=== PATIENT | female | born 1960 | race Caucasian/White ===

== ENCOUNTER 2016-05-29 22:00 | Emergency (ER) | payer OTHER ==
[2016-05-29 22:17] VITALS: BP 155/77; PULSE 80; TEMP 97.8; BMI 37.1
== END 2016-05-30 00:24 | disposition left against medical advice (07) ==
LOC: JER 22:00
DX: Z53.21 Procedure and treatment not carried out due to patient leaving prior to being seen by health care provider (principal)
CPT/HCPCS: 99281-25

== ENCOUNTER 2017-10-09 15:15 | Emergency (ER) | payer OTHER ==
[2017-10-09 15:23] VITALS: BP 133/76; PULSE 75; TEMP 98.6; BMI 33.9
--- NOTE | 2017-10-09 15:36 | PDOC ---
History of Present Illness - General Chief Complaint: Headache Stated Complaint: HEADACHES (PCP SENT) Time Seen by Provider: 10/09/17 15:24 History Source: Patient - History of Present Illness Timing/Duration: reports: 4-6 hours Associated Symptoms: denies: loss of consciousness, nausea/vomiting, vision changes Past History - Past Medical History Allergies/Adverse Reactions: Allergies Allergy/AdvReac Type Severity Reaction Status Date / Time levofloxacin [From Levaquin] Allergy Intermediate Verified 10/09/17 15:20 Home Medications: Ambulatory Orders NK [No Known Home Medication] 10/09/17 Anemia: No Asthma: No Cancer: No Cardiac Disorders: No CVA: No COPD: No CHF: No Dementia: No Diabetes: No GI Disorders: Yes (ACID REFLUX) Disorders: No HTN: No Hypercholesterolemia: No Liver Disease: No Seizures: No Thyroid Disease: No Other medical history: migraine headache - Surgical History Abdominal Surgery: No Appendectomy: No Cardiac Surgery: No Cholecystectomy: No Lung Surgery: No Neurologic Surgery: No Orthopedic Surgery: No - Immunization History Immunization Up to Date: Yes - Suicide/Smoking/Psychosocial Hx Smoking History: Never smoked Have you smoked in the past 12 months: No Number of Cigarettes Smoked Daily: 0 Hx Alcohol Use: No Drug/Substance Use Hx: No Substance Use Type: None Review of Systems - Review of Systems HEENTM: No: Blurred Vision ABD/GI: No: Nausea, Vomiting Neurological: Yes: Headache. No: Dizziness *Physical Exam - Vital Signs Last Vital Signs Temp Pulse Resp BP Pulse Ox 98.6 F 75 18 133/76 100 10/09/17 15:20 10/09/17 15:20 10/09/17 15:20 10/09/17 15:20 10/09/17 15:20 - Physical Exam General Appearance: Yes: Appropriately Dressed. No: Apparent Distress HEENT: positive: Normal Voice Neck: positive: Supple Respiratory/Chest: negative: Respiratory Distress Integumentary: positive: Dry, Warm Neurologic: positive: dial painter II-XII NML intact, Fully Oriented, Alert, Normal Mood/ Affect, Motor Strength 5/5, Finger to Nose (no nystagmus, Sj intact, no drift , no ataxia). negative: Facial Droop Medical Decision Making - Medical Decision Making 10/09/17 15:47 56-year-old female, endorses history of migraines, here with headache and photophobia, similar to her migraine headaches that started after a box of plates fell on head proximally 6 hours ago while at work. No LOC, nausea, vomiting, visual changes or dizziness. Not on any blood thinners. Seen by her primary doctor and sent to ED for possible CAT scan. See exam RODRIGUEZ s/p minor head injury ~6 hrs ago Similar to her migraines per pt No LOC, dizziness, n/v Not on blood thinners Well vishal and stable w/ intact neuro exam No indication for neuroimaging at this time -pain control>reassess 10/09/17 16:59 Pt reports sig improvement w/ meds. Continues to be neurologically intact and well appearing. Dc w/ pmd f/u as needed *DC/Admit/Observation/Transfer Diagnosis at time of Disposition: Headache Qualifiers: Headache type: unspecified Headache chronicity pattern: unspecified pattern Intractability: not intractable Qualified Code(s): R51 - Headache - Discharge Dispostion Disposition: HOME Condition at time of disposition: Improved - Referrals Referrals: Emmanuel Bowser MD [Primary Care Provider] - - Patient Instructions Printed Discharge Instructions: DI for Headache, Closed Head Injury Additional Instructions: You were seen for a minor head injury. There was no indication for head CT given mechanism and absence of concerning symptoms such as loss of consciousness , vomiting, changes in vision, etc. Continue to take your pain medication at home for your migraines as needed. Reasons to return to ED was discussed in ER. Follow-up with your PMD - Post Discharge Activity Forms/Work/School Notes: Back to Work
[2017-10-09] MEDS ORDERED: METOCLOPRAMIDE HCL INJECTION 10 MG/2 ML VIAL IVPB ONE (15:47)
[2017-10-09] MEDS ORDERED: KETOROLAC TROMETHAMINE 30 MG/1 ML VIAL IVPUSH ONE (15:47)
[2017-10-09] MEDS ORDERED: METOCLOPRAMIDE HCL INJECTION 10 MG/2 ML VIAL ONE (15:54)
[2017-10-09] MEDS ORDERED: KETOROLAC TROMETHAMINE 30 MG/1 ML VIAL ONE (15:55)
== END 2017-10-09 17:04 | disposition home or self-care (01) ==
LOC: JERFT 15:15
DX: R51 Headache (principal); W22.8XXA Striking against or struck by other objects, initial encounter; Y93.89 Activity, other specified; Y92.218 Other school as the place of occurrence of the external cause; Y99.0 Civilian activity done for income or pay
CPT/HCPCS: 99281-25

== ENCOUNTER 2020-01-11 09:50 | Observation (INO) | payer OTHER ==
[2020-01-11] MEDS ORDERED: SODIUM CHLORIDE 0.9% 1000 ML INFUS.BAG IV ONE (10:21)
[2020-01-11 11:07] LABS: BASO % 1.2 % (0-2.0); EOS % 1.7 % (0-4.5); HEMATOCRIT 40.2 % (32.4-45.2); HEMOGLOBIN 12.9 GM/dL (10.7-15.3); LYMPH % 23.8 % (8-40); MCH 27.5 pg (25.7-33.7); MCHC 32.1 g/dl (32.0-36.0); MEAN CELL VOLUME 85.6 fl (80-96); MONO % 6.6 % (3.8-10.2); NEUT % 66.7 % (42.8-82.8); PLATELET COUNT 209 K/MM3 (134-434); RDW 14.2 % (11.6-15.6); WHITE BLOOD COUNT 5.8 K/mm3 (4.0-10.0)
--- NOTE | 2020-01-11 11:07 | PDOC ---
Documentation entered by Adela Morse SCRIBE, acting as scribe for Krystle Arreola MD. Krystle Arreola MD: This documentation has been prepared by the shawneeibeLito Ana, SCRIBE, under my direction and personally reviewed by me in its entirety. I confirm that the documentation accurately reflects all work, treatment, procedures, and medical decision making performed by me. History of Present Illness - General Chief Complaint: Syncope/Near Syncope Stated Complaint: SYNCOPE Time Seen by Provider: 01/11/20 10:09 History Source: Patient Exam Limitations: No Limitations - History of Present Illness Initial Comments: 01/11/20 10:10 Patient is a 59 year old female with a significant past medical history of syncope, migraines, asthma, and arthritis, who presents to the ED with a fall from earlier today. Patient stated she was in the middle of taking a shower this morning when she began to feel dizzy, lightheaded, SOB, and "blacked out". Patient said she lost consciousness and only remembers waking up on the floor. Patient also reports a burning sensation when she urinates x6 days. Patient recently came back from the [place] on January 01. Patient also disclosed that [place], she fainted, had a fever for 2 days, and had diarrhea. Patient endorses current: chills, headache, neck pain, abdominal pain, tingling feeling in fingers x a few days. Patient denies: fever, nausea, vomiting, palpitations, chest pain, constipation, diarrhea, or any other related symptoms. Allergies: levofloxacin. Past History - Medical History Allergies/Adverse Reactions: Allergies Allergy/AdvReac Type Severity Reaction Status Date / Time levofloxacin [From Levaquin] Allergy Intermediate Verified 01/11/20 09:56 Home Medications: Ambulatory Orders NK [No Known Home Medication] 10/09/17 Anemia: No Asthma: No Cancer: No Cardiac Disorders: No CVA: No COPD: No CHF: No Dementia: No Diabetes: No GI Disorders: Yes (ACID REFLUX) Disorders: No HTN: No Hypercholesterolemia: No Liver Disease: No Seizures: No Thyroid Disease: No Other medical history: MIRGRAINE HEADACHES - Surgical History Abdominal Surgery: No Appendectomy: No Cardiac Surgery: No Cholecystectomy: No Lung Surgery: No Neurologic Surgery: No Orthopedic Surgery: No - Immunization History Immunization Up to Date: No - Psycho-Social/Smoking History Smoking History: Never smoked Have you smoked in the past 12 months: No Number of Cigarettes Smoked Daily: 0 - Substance Abuse Hx (Audit-C & DAST Scrn) How often the patient has a drink containing alcohol: Never Score: In Men: 4 or > Positive; In Women: 3 or > Positive: 0 Screen Result (Pos requires Nsg. Audit-10AR): Negative In the last yr the pt used illegal drug/Rx for NonMed reason: No Score: Yes response is considered Positive: 0 Screen Result (Positive result requires Nsg. DAST-10): Negative Review of Systems - Review of Systems Able to Perform ROS?: Yes Constitutional: Yes: Chills, Fever, Other (2 weeks ago). No: Diaphoresis HEENTM: No: Nose Congestion, Tinnitus Respiratory: Yes: Cough ABD/GI: No: Nausea, Vomiting : Yes: Burning, Dysuria Musculoskeletal: Yes: Back Pain Neurological: Yes: Headache, Tingling (has had for days). No: Tremors All Other Systems: Reviewed and Negative *Physical Exam - Vital Signs Last Vital Signs Temp Pulse Resp BP Pulse Ox 98.6 F 68 20 116/67 100 01/11/20 09:56 01/11/20 09:56 01/11/20 09:56 01/11/20 09:56 01/11/20 09:56 ED Treatment Course - LABORATORY CBC & Chemistry Diagram: 01/11/20 10:10 01/11/20 10:10 Medical Decision Making - Medical Decision Making 01/11/20 12:38 59-year-old female with a history of syncope asthma recently traveled to the where she stayed for 30 days at that time had a febrile illness with low blood pressure which she had for 2 days and diarrhea now here today with a syncopal episode while in the shower patient found herself laying in the bathtub did hit her head is complaining of a headache nausea no vomiting does also complain of dysuria for 3 days. On my exam the patient is neurologically intact cardiac lung exam is unremarkable her abdomen is nontender she has good strength throughout. Differential diagnosis includes dehydration secondary to UTI and subsequent syncope, dysrhythmia, ACS, pyelonephritis, plan CBC CMP troponin EKG chest x-ray basic labs UA urine culture will also add a COVID-19 swab as the patient was febrile in the ER recently Patient's labs are unremarkable with a normal white count no anemia troponin is negative she does have a UTI with over 150 white cells in her urine will treat with ceftriaxone she be given a liter normal saline fluids EKG shows a normal sinus rhythm no ST elevations or depressions will admit to telemetry for UTI with syncope and further cardiac work-up IV antibiotics Discharge - Discharge Information Problems reviewed: Yes Clinical Impression/Diagnosis: Syncope, UTI (urinary tract infection) Condition: Improved - Admission Yes - Follow up/Referral - Patient Discharge Instructions - Post Discharge Activity
[2020-01-11 11:45] LABS: ALBUMIN 3.2 g/dl (3.4-5.0); ALK PHOS 93 U/L (45-117); ANION GAP 6 MMOL/L (8-16); BILIRUBIN,TOTAL 0.4 mg/dL (0.2-1); BLOOD UREA NITROGEN 16.4 mg/dL (7-18); CALCIUM 8.9 mg/dL (8.5-10.1); CHLORIDE 108 mmol/L (98-107); CO2 28 mmol/L (21-32); CREATININE 0.8 mg/dL (0.55-1.3); GLUCOSE,RANDOM 96 mg/dL (74-106); POTASSIUM 4.4 mmol/L (3.5-5.1); SGOT/AST 21 U/L (15-37); SGPT/ALT 19 U/L (13-61); SODIUM 142 mmol/L (136-145); TOT PROT 7.5 g/dl (6.4-8.2)
[2020-01-11 12:07] LABS: EPI CELLS 16 /uL (0-25.1); HYALINE CASTS 7 /uL (0-3.1); URINE APPEARANCE CLOUDY; URINE BILIRUBIN NEGATIVE (NEGATIVE); URINE COLOR YELLOW; URINE GLUCOSE (UA) NEGATIVE (NEGATIVE); URINE KETONE NEGATIVE (NEGATIVE); URINE LEUK ESTERASE 1+ (NEGATIVE); URINE NITRITE POSITIVE (NEGATIVE); URINE PROTEIN NEGATIVE (NEGATIVE); URINE RBC 22 /uL (0-23.9); URINE UROBILINOGEN 0.2 mg/dL (0.2-1.0); URINE WBC 142 /uL (0-25.8)
[2020-01-11] MEDS ORDERED: CEFTRIAXONE 1,000 MG in DEXTROSE 5%-WATER - 50 ML IVPB ONE (12:37)
[2020-01-11] MEDS ORDERED: CEFTRIAXONE 1 GM/50 ML BAG ONE (12:44)
--- NOTE | 2020-01-11 12:49 | EKG ---
Test Reason : Blood Pressure : / mmHG Vent. Rate : 067 BPM Atrial Rate : 067 BPM P-R Int : 182 ms QRS Dur : 086 ms QT Int : 438 ms P-R-T Axes : 066 066 035 degrees QTc Int : 462 ms NORMAL SINUS RHYTHM NORMAL ECG WHEN COMPARED WITH ECG OF 14-SEP-2014 07:42, NO SIGNIFICANT CHANGE WAS FOUND Confirmed by Josh Fitzgerald MD ([id number]) on 01/11/2020 12:49:43 PM Referred By: Confirmed By:Josh Fitzgerald MD
[2020-01-11] MEDS ORDERED: ACETAMINOPHEN 325 MG TABLET (FP) PO ONE (14:34)
[2020-01-11] MEDS ORDERED: ACETAMINOPHEN 325 MG TABLET (FP) ONE (14:53)
[2020-01-11 17:11] VITALS: BMI 34.3
[2020-01-11] MEDS ORDERED: ACETAMINOPHEN 1000 MG/100 ML VIAL (NON FORMULARY) IVPB ONE (17:40)
[2020-01-11] MEDS: D5-1/2NS+20 MEQ KCL - 20 MEQ/1,000 ML INFUS.BAG IV SCH (18:26)
[2020-01-11] MEDS: HEPARIN NA (PORCINE) 5,000 UNITS/ML 1ML VIAL SQ SCH (21:30)
[2020-01-12] MEDS: D5-1/2NS+20 MEQ KCL - 20 MEQ/1,000 ML INFUS.BAG IV SCH (05:43)
[2020-01-12 07:21] LABS: BASO % 1.2 % (0-2.0); EOS % 2.6 % (0-4.5); HEMATOCRIT 36.4 % (32.4-45.2); HEMOGLOBIN 11.8 GM/dL (10.7-15.3); LYMPH % 46.4 % (8-40); MCH 27.1 pg (25.7-33.7); MCHC 32.4 g/dl (32.0-36.0); MEAN CELL VOLUME 83.9 fl (80-96); MEAN PLT VOLUME 9.8 fl (7.5-11.1); MONO % 7.5 % (3.8-10.2); NEUT % 42.3 % (42.8-82.8); PLATELET COUNT 195 K/MM3 (134-434); RBC 4.34 M/mm3 (3.60-5.2); WHITE BLOOD COUNT 4.2 K/mm3 (4.0-10.0)
[2020-01-12 07:52] LABS: ALBUMIN 2.9 g/dl (3.4-5.0); ALK PHOS 87 U/L (45-117); ANION GAP 7 MMOL/L (8-16); BLOOD UREA NITROGEN 9.2 mg/dL (7-18); CALCIUM 8.8 mg/dL (8.5-10.1); CHLORIDE 109 mmol/L (98-107); CO2 25 mmol/L (21-32); CREATININE 0.7 mg/dL (0.55-1.3); GLUCOSE,RANDOM 96 mg/dL (74-106); HDL CHOLESTEROL 69 mg/dL (40-60); SODIUM 142 mmol/L (136-145); TRIGLYCERIDES 116 mg/dL (0-150)
[2020-01-12 07:56] LABS: BILIRUBIN,TOTAL 1.1 mg/dL (0.2-1); CHOLESTEROL 205 mg/dL (50-200); LDL CHOLESTEROL (ONLY SJRH) 115 mg/dL (5-100); MAGNESIUM 2.1 mg/dL (1.8-2.4); SGOT/AST 15 U/L (15-37); SGPT/ALT 14 U/L (13-61); TOT PROT 6.8 g/dl (6.4-8.2)
--- NOTE | 2020-01-12 09:00 | CON.NEURO ---
Consult Consult Specialty:: [facility] - History of Present Illness History of Present Illness: 59-year-old right-handed female patient with history of chronic headaches/migraine/and anxietysyncope in the past came in to the hospital after lightheadedness and questionable syncope source patient was in the shower no report of any chest pain palpitations no report of any recent travel no head trauma no exposure to Covid 19. Patient fell with mild head trauma I reviewed the images of the CAT scan of the cervical spine and the brain. - Past Medical History Gastrointestinal: Yes: GERD ...: No - Past Surgical History Past Surgical History: Yes: Hysterectomy - Alcohol/Substance Use Hx Alcohol Use: No - Smoking History Smoking history: Never smoked Have you smoked in the past 12 months: No Aproximately how many cigarettes per day: 0 - Social History ADL: Independent History of Recent Travel: No Home Medications - Allergies Allergies/Adverse Reactions: Allergies Allergy/AdvReac Type Severity Reaction Status Date / Time levofloxacin [From Levaquin] Allergy Intermediate Verified 01/11/20 09:56 - Home Medications Home Medications: Ambulatory Orders NK [No Known Home Medication] 10/09/17 Family Medical History Family History: Unremarkable Review of Systems - Review of Systems Neurological: reports: Dizziness, Headache, Incoordination, Numbness Physical Exam-Neuro Vital Signs: Vital Signs Temperature 97.8 F 01/12/20 05:00 Pulse Rate 58 L 01/12/20 05:00 Respiratory Rate 20 01/12/20 05:00 Blood Pressure 123/62 01/12/20 05:00 O2 Sat by Pulse Oximetry (%) 90 L 01/12/20 05:00 Labs: CBC, BMP 01/12/20 06:14 01/12/20 06:14 - Neuro Exam Level Of Consciousness: Yes: Oriented to Person, Oriented to Place, Oriented to Time Eyes: Yes: PERRLA Speech: WNL Dominant Hand: Right Cranial Nerves II-XII Intact: Yes Gag: Present DTR's: 1+ Left Bicep, 1+ Right Bicep, 1+ Left Tricep, 1+ Right Tricep Response to light touch: Normal Response to pain prick: Normal Response to temperature: Normal Motor Strength: 3/5: Left Arm, Right Arm, Left Leg, Right Leg Gait: Deferred Imaging - Results Cat Scan: Image Reviewed Problem List - Problems (1) Syncope Code(s): R55 - SYNCOPE AND COLLAPSE (2) Headache Code(s): R51 - HEADACHE (3) Vertigo Code(s): R42 - DIZZINESS AND GIDDINESS Assessment/Plan . Fall precautions. 2. Holter monitor. 3. MRI of the brain with no contrast. 4. No need for aspirin. 5. Tight blood pressure control
--- NOTE | 2020-01-12 10:31 | CON.CARD ---
Consult Consult Specialty:: Cardiology Referred by:: Jd Reason for Consultation:: syncope - History of Present Illness Chief Complaint: syncope History of Present Illness: 59 year old female with a history of migraines, asthma, and arthritis, who was admitted with a fall in the shower, prodrome of lightheadedness and flushing. Denies chest pain or sob. Recent illness in [place], and noted with UTI as well. No cardiac history. - History Source History Provided By: Patient, Medical Record - Past Medical History Gastrointestinal: Yes: GERD ...: No - Past Surgical History Past Surgical History: Yes: Hysterectomy - Alcohol/Substance Use Hx Alcohol Use: No - Smoking History Smoking history: Never smoked Have you smoked in the past 12 months: No Aproximately how many cigarettes per day: 0 - Social History ADL: Independent History of Recent Travel: No Home Medications - Allergies Allergies/Adverse Reactions: Allergies Allergy/AdvReac Type Severity Reaction Status Date / Time levofloxacin [From Levaquin] Allergy Intermediate Verified 01/11/20 09:56 - Home Medications Home Medications: Ambulatory Orders NK [No Known Home Medication] 10/09/17 Family Medical History Family History: Unremarkable Vital Signs: Vital Signs Temperature 97.8 F 01/12/20 05:00 Pulse Rate 58 L 01/12/20 05:00 Respiratory Rate 20 01/12/20 05:00 Blood Pressure 123/62 01/12/20 05:00 O2 Sat by Pulse Oximetry (%) 90 L 01/12/20 05:00 Constitutional: Yes: No Distress, Calm Eyes: Yes: Conjunctiva Clear, EOM Intact HENT: Yes: Normocephalic Neck: Yes: Trachea Midline Respiratory: Yes: CTA Bilaterally Gastrointestinal: Yes: Normal Bowel Sounds, Soft Cardiovascular: Yes: Regular Rate and Rhythm JVD: No Carotid Bruit: No PMI: Non-Displaced Heart Sounds: Yes: S1, S2 Extremities: Yes: WNL Edema: No Peripheral Pulses WNL: Yes - Other Data Labs, Other Data: CBC, BMP 01/12/20 06:14 01/12/20 06:14 Troponin, BNP 01/11/20 01/11/20 01/12/20 10:10 20:45 06:14 Troponin I < 0.02 < 0.02 < 0.02 Troponin, BNP 01/11/20 01/11/20 01/12/20 10:10 20:45 06:14 Troponin I < 0.02 < 0.02 < 0.02 Imaging - Results Chest X-ray: Report Reviewed (alexandro) Cat Scan: Report Reviewed (neg) EKG: Report Reviewed (normal ECG) Assessment/Plan 59 year old female with a history of migraines, asthma, and arthritis, who was admitted with a fall in the shower, prodrome of lightheadedness and flushing. Denies chest pain or sob. Recent illness in [place], and noted with UTI as well. No cardiac history. IMP -likely orthostatic syncope. -tele x 24 hours only needed. -no need for inpatient echo. -check orthostatic VS -continue IVF and ABX. -will follow with you.
[2020-01-12] MEDS ORDERED: cefTRIAXone SODIUM 1 GM VIAL ONE (10:58)
[2020-01-12] MEDS ORDERED: DEXTROSE 5%-WATER - 50 ML IVPB ONE (10:59)
[2020-01-12] MEDS: CEFTRIAXONE 1 GM in DEXTROSE 5%-WATER - 50 ML IVPB SCH (11:01)
[2020-01-12] MEDS: HEPARIN NA (PORCINE) 5,000 UNITS/ML 1ML VIAL SQ SCH ×2 (11:01→21:18)
--- NOTE | 2020-01-12 12:27 | HP ---
Admitting History and Physical - Primary Care Physician PCP: Laura Miles - Admission Chief Complaint: Syncope. UTI History of Present Illness: Patient is a 59 year old female with a significant past medical history of syncope, migraines, asthma, and arthritis, who presents to the ED with a fall from earlier today. Patient stated she was in the middle of taking a shower this morning when she began to feel dizzy, lightheaded, SOB, and "blacked out". P lilian said she lost consciousness and only remembers waking up on the floor. Patient also reports a burning sensation when she urinates x6 days. Patient recently came back from the [facility] on January 01. Patient also disclosed that while she in [place] a few weeks ago, she fainted, had a fever for 2 days, and had diarrhea. History Source: Patient Limitations to Obtaining History: No Limitations - Past Medical History Gastrointestinal: Yes: GERD ...: No - Past Surgical History Past Surgical History: Yes: Hysterectomy - Smoking History Smoking history: Never smoked Have you smoked in the past 12 months: No Aproximately how many cigarettes per day: 0 - Alcohol/Substance Use Hx Alcohol Use: No - Social History ADL: Independent History of Recent Travel: No Home Medications - Allergies Allergies/Adverse Reactions: Allergies Allergy/AdvReac Type Severity Reaction Status Date / Time levofloxacin [From Levaquin] Allergy Intermediate Verified 01/11/20 09:56 - Home Medications Home Medications: Ambulatory Orders NK [No Known Home Medication] 10/09/17 Family Medical History Family History: Unremarkable Review of Systems - Review of Systems Constitutional: reports: No Symptoms Eyes: reports: No Symptoms HENT: reports: No Symptoms Neck: reports: No Symptoms Cardiovascular: reports: No Symptoms Respiratory: reports: No Symptoms Gastrointestinal: reports: No Symptoms Genitourinary: reports: No Symptoms Breasts: reports: No Symptoms Reported Musculoskeletal: reports: No Symptoms Integumentary: reports: No Symptoms Neurological: reports: Syncope Endocrine: reports: No Symptoms Hematology/Lymphatic: reports: No Symptoms Psychiatric: reports: No Symptoms Physical Examination Vital Signs: Vital Signs Temperature 98.4 F 01/12/20 09:30 Pulse Rate 72 01/12/20 09:30 Respiratory Rate 20 01/12/20 09:30 Blood Pressure 123/81 01/12/20 09:30 O2 Sat by Pulse Oximetry (%) 98 01/12/20 09:30 Constitutional: Yes: Well Nourished, No Distress, Calm Cardiovascular: Yes: Regular Rate and Rhythm Respiratory: Yes: Regular, CTA Bilaterally Gastrointestinal: Yes: Normal Bowel Sounds, Soft Renal/: Yes: WNL Musculoskeletal: Yes: WNL Extremities: Yes: WNL Edema: No Peripheral Pulses WNL: Yes Neurological: Yes: Alert, Oriented Psychiatric: Yes: Alert, Oriented Labs: CBC, BMP 01/12/20 06:14 01/12/20 06:14 Problem List - Problems (1) Syncope Assessment/Plan: -Cardiology consult -neurology consult -CT head negative -MRI brain without contrast ordered -2/2 to UTI? -No further cardiac testing recommended -Tele monitor Problems reviewed: Yes Code(s): R55 - SYNCOPE AND COLLAPSE (2) UTI (urinary tract infection) Assessment/Plan: -IV abx -ID consult -UC + lactose fermenting GNB -D/C IVF -encourage PO fluids Problems reviewed: Yes Code(s): N39.0 - URINARY TRACT INFECTION, SITE NOT SPECIFIED Assessment/Plan See problem list
--- NOTE | 2020-01-12 15:22 | PN ---
Progress Note (short form) - Note Progress Note: ID CONSULT DICTATED UTI R/O SEPSIS SECONDARY TO UTI S/P SYNCOPE PENDING C/S CONTINUE EMPIRIC CEFTRIAXONE
--- NOTE | 2020-01-12 16:11 | CONS ---
INFECTIOUS DISEASE CONSULTATION DATE OF CONSULTATION: DATE OF DICTATION: 01/12/2020 The patient is a 59-year-old female evaluated for possible sepsis. She was admitted to the hospital on January 11, 2020, after a syncopal episode. Patient states that she was in the shower when she developed a syncopal episode. She apparently had head trauma. She was brought to the emergency room where a CAT scan of the head was negative for acute infarct or bleed. She had been complaining of dysuria for 6 days prior to admission. A urinalysis showed pyuria. Urine culture is growing a lactose learning strategist. She is presently being evaluated by Cardiology and Neurology. At the present time, she denies any dysuria. No reports of suprapubic or flank pain. She denies any hematuria. No recent febrile illness. Of note, the patient recently returned from the [facility] on January 02, 2020, after spending several weeks there. PAST MEDICAL HISTORY: Positive for migraine headaches, asthma. PAST SURGICAL HISTORY: Status post hysterectomy. ALLERGIES: QUINOLONES. MEDICATIONS: Include ceftriaxone, Tylenol. SOCIAL HISTORY: She resides in the community. She is a nonsmoker, nondrinker. SYSTEMS REVIEW: Neurologic: As per HPI. Cardiac: Negative chest pain or palpitations. Respiratory: Negative cough or sputum production. Gastrointestinal: Negative vomiting or diarrhea. Genitourinary: As per HPI. LABORATORY DATA: White count 4.2; neutrophils 42, lymphocytes 46; hematocrit 36.4; platelets 145. Creatinine 0.7. Urinalysis: White cells 142. Urine culture growing a lactose learning strategist. PHYSICAL EXAMINATION: General: She is awake and alert. She is not acutely toxic appearing. Vital Signs: Temperature 97.9; blood pressure 126/55; pulse 68, regular; respirations 20 per minute. HEENT: Sclerae are anicteric. Heart: Sounds S1, S2. Lungs: Clear. Abdomen: Soft. No suprapubic or flank tenderness. Extremities: Negative for edema. IMPRESSION: 1. Status post syncopal episode. 2. Urinary tract infection, rule out sepsis secondary to urinary tract infection. Obtain blood cultures, await urine culture results, continue empiric ceftriaxone. Will follow. Thank you for the kind referral. MICHAELA CH M.D. [id number]
[2020-01-12] MEDS ORDERED: ACETAMINOPHEN 325 MG TABLET (FP) PO PRN (16:41)
--- NOTE | 2020-01-12 16:55 | EKG ---
Test Reason : Blood Pressure : / mmHG Vent. Rate : 067 BPM Atrial Rate : 067 BPM P-R Int : 170 ms QRS Dur : 080 ms QT Int : 426 ms P-R-T Axes : 068 070 037 degrees QTc Int : 450 ms NORMAL SINUS RHYTHM NORMAL ECG WHEN COMPARED WITH ECG OF 11-JAN-2020 10:09, NO SIGNIFICANT CHANGE WAS FOUND Confirmed by NAV QUINTERO MD ([id number]) on 01/12/2020 4:55:16 PM Referred By: Confirmed By:NAV QUINTERO MD
--- NOTE | 2020-01-13 08:34 | PN ---
Progress Note, Physician Chief Complaint: UTI Syncope History of Present Illness: NAD was unable to do MRI brain due to claustrophobia- refuses to do it again w/ antianxiolytic Denies any urinary symptoms - Current Medication List Current Medications: Active Medications Acetaminophen (Tylenol -) 650 mg PO Q4H PRN PRN Reason: PAIN LEVEL 1-5 OR FEVER > 100 Heparin Sodium (Porcine) (Heparin -) 5,000 unit SQ BID LAURI Last Admin: 01/12/20 21:18 Dose: 5,000 unit Documented by: Ceftriaxone Sodium 1 gm/ (Dextrose) 50 mls @ 200 mls/hr IVPB DAILY [facility]; Protocol Last Admin: 01/12/20 11:01 Dose: 200 mls/hr Documented by: - Objective Vital Signs: Vital Signs Temperature 97.7 F 01/13/20 06:00 Pulse Rate 56 L 01/13/20 06:00 Respiratory Rate 18 01/13/20 06:00 Blood Pressure 119/67 01/13/20 06:00 O2 Sat by Pulse Oximetry (%) 100 01/13/20 06:00 Constitutional: Yes: Well Nourished, No Distress, Calm Cardiovascular: Yes: Regular Rate and Rhythm Respiratory: Yes: Regular, CTA Bilaterally Gastrointestinal: Yes: Normal Bowel Sounds, Soft Genitourinary: Yes: WNL Musculoskeletal: Yes: WNL Extremities: Yes: WNL Edema: No Peripheral Pulses WNL: Yes Neurological: Yes: Alert, Oriented Psychiatric: Yes: Alert, Oriented Labs: CBC, BMP 01/12/20 06:14 01/12/20 06:14 Problem List - Problems (1) Syncope Assessment/Plan: -Cardiology consult -neurology consult -CT head negative -MRI brain without contrast unable to complete -2/2 to UTI? -No further cardiac testing recommended -d/c Tele monitor Problems reviewed: Yes Code(s): R55 - SYNCOPE AND COLLAPSE (2) UTI (urinary tract infection) Assessment/Plan: -IV abx--->transition to PO if ID agrees -ID consult -UC + lactose fermenting GNB -D/C IVF -encourage PO fluids Problems reviewed: Yes Code(s): N39.0 - URINARY TRACT INFECTION, SITE NOT SPECIFIED Assessment/Plan See problem list
[2020-01-13] MEDS ORDERED: DEXTROSE 5%-WATER - 50 ML IVPB ONE (09:53)
[2020-01-13] MEDS ORDERED: cefTRIAXone SODIUM 1 GM VIAL ONE (09:53)
--- NOTE | 2020-01-13 10:10 | PN ---
Progress Note, Physician Chief Complaint: no complaints tele neg could not tolerate MRI History of Present Illness: 59 year old female with a history of migraines, asthma, and arthritis, who was admitted with a fall in the shower, prodrome of lightheadedness and flushing. Denies chest pain or sob. Recent illness in [place], and noted with UTI as well. No cardiac history. - Current Medication List Current Medications: Active Medications Acetaminophen (Tylenol -) 650 mg PO Q4H PRN PRN Reason: PAIN LEVEL 1-5 OR FEVER > 100 Heparin Sodium (Porcine) (Heparin -) 5,000 unit SQ BID [facility] Last Admin: 01/12/20 21:18 Dose: 5,000 unit Documented by: Ceftriaxone Sodium 1 gm/ (Dextrose) 50 mls @ 200 mls/hr IVPB DAILY [facility]; Protocol Last Admin: 01/12/20 11:01 Dose: 200 mls/hr Documented by: - Objective Vital Signs: Vital Signs Temperature 97.7 F 01/13/20 06:00 Pulse Rate 56 L 01/13/20 06:00 Respiratory Rate 18 01/13/20 06:00 Blood Pressure 119/67 01/13/20 06:00 O2 Sat by Pulse Oximetry (%) 100 01/13/20 06:00 Constitutional: Yes: No Distress, Calm Eyes: Yes: EOM Intact HENT: Yes: Normocephalic Neck: Yes: Trachea Midline Cardiovascular: Yes: Regular Rate and Rhythm Respiratory: Yes: CTA Bilaterally Gastrointestinal: Yes: Normal Bowel Sounds, Soft Extremities: Yes: WNL Edema: No Peripheral Pulses WNL: Yes Labs: CBC, BMP 01/12/20 06:14 01/12/20 06:14 Assessment/Plan 59 year old female with a history of migraines, asthma, and arthritis, who was admitted with a fall in the shower, prodrome of lightheadedness and flushing. Denies chest pain or sob. Recent illness in [place], and noted with UTI as well. No cardiac history. IMP -likely orthostatic syncope. -tele x 24 hours negative. -no need for inpatient echo. Echo can be done as outpatient. -check orthostatic VS -continue IVF and ABX. -will follow as needed.
[2020-01-13] MEDS: HEPARIN NA (PORCINE) 5,000 UNITS/ML 1ML VIAL SQ SCH (10:18)
[2020-01-13] MEDS: CEFTRIAXONE 1 GM in DEXTROSE 5%-WATER - 50 ML IVPB SCH (10:18)
[2020-01-13 14:28] VITALS: BP 114/73; PULSE 70; TEMP 97.9
== END 2020-01-13 18:11 | disposition home or self-care (01) ==
LOC: JER 09:50 → INTOOBSV 13:51 → JERBED 13:51 → J4S 18:07
PROVIDERS: ADMIT Family Medicine; ATTEND Family Medicine
PROC: 3E0337Z Introduction of Electrolytic and Water Balance Substance into Peripheral Vein, Percutaneous Approach (ICD-10-PCS; principal; 2020-01-11)
PROC: 3E023GC Introduction of Other Therapeutic Substance into Muscle, Percutaneous Approach (ICD-10-PCS; 2020-01-11)
PROC: 3E03329 Introduction of Other Anti-infective into Peripheral Vein, Percutaneous Approach (ICD-10-PCS; 2020-01-11)
DX: R55 Syncope and collapse (principal); N39.0 Urinary tract infection, site not specified; E66.8 Other obesity; Z68.34 Body mass index [BMI] 34.0-34.9, adult; J45.909 Unspecified asthma, uncomplicated; K21.9 Gastro-esophageal reflux disease without esophagitis; G89.29 Other chronic pain; F41.9 Anxiety disorder, unspecified; R42 Dizziness and giddiness; R20.0 Anesthesia of skin; E66.9 Obesity, unspecified; W18.2XXA Fall in (into) shower or empty bathtub, initial encounter; Y93.E1 Activity, personal bathing and showering; Y92.89 Other specified places as the place of occurrence of the external cause; Z88.8 Allergy status to other drugs, medicaments and biological substances; Z29.9 Encounter for prophylactic measures, unspecified
CPT/HCPCS: 36415; 70450-TC; 71046-TC-FY; 72125-TC; 73030-TC-LT-FY; 80053; 80061; 81003; 82550; 83036; 83721; 83735; 84443; 84484; 85025; 87040; 87086; 87186; 93005; 93010; 99285-25; G0378; J0131; J1644; U0003

== ENCOUNTER 2022-02-27 13:08 | Emergency (ER) | payer OTHER ==
[2022-02-27 13:23] VITALS: BP 117/75; PULSE 68; RESP 18; TEMP 98.2; BMI 37.1
[2022-02-27] MEDS ORDERED: KETOROLAC TROMETHAMINE 30 MG/1 ML VIAL IM ONE (14:35)
[2022-02-27] MEDS ORDERED: DIPHTH,PERTUSS(ACELL),TET 0.5 ML DISP.SYRIN IM ONE ×2 (14:35→14:40)
[2022-02-27] MEDS ORDERED: KETOROLAC TROMETHAMINE 30 MG/1 ML VIAL ONE (14:40)
== END 2022-02-27 15:12 | disposition home or self-care (01) ==
LOC: JERFT 13:08 → JER 13:08 → JERFT 15:12
PROC: 3E0233Z Introduction of Anti-inflammatory into Muscle, Percutaneous Approach (ICD-10-PCS; principal; 2022-02-27)
PROC: 3E0234Z Introduction of Serum, Toxoid and Vaccine into Muscle, Percutaneous Approach (ICD-10-PCS; 2022-02-27)
DX: M25.571 Pain in right ankle and joints of right foot (principal); M25.561 Pain in right knee; W10.9XXA Fall (on) (from) unspecified stairs and steps, initial encounter; Y92.9 Unspecified place or not applicable
CPT/HCPCS: 73562-TC-RT-FY; 73610-TC-RT-FY; 73630-TC-RT-FY; 90715; 99284-25